=== PATIENT | male | born 1940 | race Caucasian/White ===

== ENCOUNTER 2021-09-26 15:27 | Inpatient (IN) | payer OTHER, BC ==
[2021-09-26] VITALS (19 sets, daily range): BP systolic 85–115; BP diastolic 44–61
[~2021-09-26] VITALS: Ht 175.3 cm; Wt 92.3 kg
[2021-09-26 16:34] LABS: ABSOLUTE NEUTROPHILS 14.1 thou/uL (1.4-8.2); BASOPHILS 0.1 % (0.0-2.0); HEMATOCRIT 41.5 % (42.0-52.0); HEMOGLOBIN 13.8 gm/dL (14.0-18.0); LYMPHOCYTES 1.2 % (24.0-44.0); MCH 30.6 pg (26.0-34.0); MCHC 33.2 g/dL (28.0-37.0); MCV 92.1 fL (80.0-100.0); MONOCYTES 4.3 % (1.0-8.0); PLATELET COUNT 140 thou/uL (150-400); POLYS 94.4 % (36.0-66.0); RBC 4.51 mil/uL (4.50-6.00); RDW 14.6 % (10.5-14.5); WBC 14.9 thou/uL (4.0-11.0)
[2021-09-26 16:51] LABS: CALCIUM 9.2 mg/dL (8.5-10.1); CREATININE 2.3 mg/dL (0.7-1.3); POTASSIUM 3.6 mmol/L (3.5-5.1)
[2021-09-26 16:54] LABS: URINE BILIRUBIN NEGATIVE (Negative); URINE BLOOD 2+ (Negative); URINE CLARITY CLOUDY; URINE COLOR YELLOW; URINE GLUCOSE-RANDOM* NEGATIVE (Negative); URINE KETONES TRACE (Negative); URINE NITRITE-REFLEX NEGATIVE (Negative); URINE PROTEIN (DIPSTICK) 1+ (Negative); URINE SPECIFIC GRAVITY 1.015 (1.005-1.035); URINE UROBILINOGEN 0.2 E.U./dl (0.2-1.0)
[2021-09-26 16:55] LABS: URINE LEUKOCYTES-REFLEX 3+ (Negative)
[2021-09-26 16:57] LABS: ALBUMIN 3.4 g/dL (3.4-5.0); TOTAL BILIRUBIN 1.1 mg/dL (0.2-1.0); TOTAL PROTEIN 6.8 g/dL (6.4-8.2)
[2021-09-26 17:07] LABS: CASTS None Seen /LPF (None Seen); CRYSTALS None Seen /LPF (None Seen); SQUAMOUS 0-3 Few /LPF (0-3); URINE RBC 3-10 Few /HPF (NONE SEEN)
[2021-09-26] MEDS ORDERED: DILTIAZEM 24HR300 M2 PO (17:41)
[2021-09-26] MEDS ORDERED: DUTASTERIDE0.5 MG PO (17:50)
[2021-09-26] MEDS ORDERED: TERAZOSIN HCL10 MG PO (17:59)
[2021-09-26] MEDS ORDERED: TRAZODONE HCL100 MG PO (17:59)
[2021-09-26] MEDS ORDERED: GLUCOSAMINE CH1 EAC4 PO (18:02)
[2021-09-26] MEDS ORDERED: ACID-PEP20 MG PO (18:02)
[2021-09-26] MEDS ORDERED: METFORMIN HCL500 M1 PO (18:02)
[2021-09-26] MEDS ORDERED: GABAPENTIN800 M1 PO (18:03)
[2021-09-26] MEDS ORDERED: POTASSIUM CHLO20 ME1 PO (18:03)
[2021-09-26] MEDS ORDERED: PRAVACHOL 20 MG20 M1 PO (18:03)
[2021-09-26] MEDS ORDERED: AMBIEN 5 MG TABL5 M1 PO (18:03)
[2021-09-26] MEDS ORDERED: HYDROCHLOROTHIA25 M1 PO (18:04)
[2021-09-26] MEDS ORDERED: SINGULAIR 10 MG10 M1 PO (18:04)
[2021-09-26] MEDS ORDERED: AVODART0.5 MG PO (18:04)
[2021-09-26] MEDS ORDERED: DIPHENHIST50 MG PO (18:05)
[2021-09-26] MEDS ORDERED: ALLEGRA ALLERG180 MG PO (18:05)
[2021-09-26 18:51] LABS: BE(vivo) -1.9 mmol/L (-2 to +3); HCO3 21.5 mmol/L (22.0-26.0); PCO2 32.6 mmHg (35.0-45.0); PO2 63.5 mmHg (80.0-100.0); pH 7.438 (7.360-7.450); sO2 93.2 % (92.0-98.0)
[2021-09-26 20:25] LABS: APTT 32.4 Seconds (24.5-32.8); INR 1.21; PROTIME 13.1 Seconds (10.5-12.1)
[2021-09-27] VITALS (74 sets, daily range): BP systolic 94–152; BP diastolic 57–95
--- NOTE | 2021-09-27 01:31 | NUR ---
Assumed care at 1944. Patient transferred to ICU from ER. Pt on sepsis protocol. A&0 x 4. PERRL. full ROM. NSR. room air, spo2 97%. denies SOA. last BM x 2 days. Temp 100.7 F. Blood sugar 109. Denies pain. asks appropriate questions. 1000ml NS infusing at 126ml/hr, Levophed infusoing at 5mcG/min. central line and grant catheter placement prior to admission to ICU. General & Laparoscopic consult contacted. Dr Zee called back at 2139 and informed this RN that he communicated with attending physician at ER prior to patient transfer. Adm assessment and education completed. Fall consent form signed by the patient. Medicare/Treatment consent form signed at ER. Patient's daughter, Dennise Miramontes called from [phone]. she was updated and educated on the patient's condition and his plan of care
[2021-09-27 04:47] LABS: HEMATOCRIT 36.5 % (42.0-52.0); HEMOGLOBIN 12.4 gm/dL (14.0-18.0); MCH 30.9 pg (26.0-34.0); MCHC 33.8 g/dL (28.0-37.0); MCV 91.3 fL (80.0-100.0); PLATELET COUNT 124 thou/uL (150-400); RDW 14.8 % (10.5-14.5); WBC 19.5 thou/uL (4.0-11.0)
[2021-09-27 05:50] LABS: ALBUMIN 2.6 g/dL (3.4-5.0); CALCIUM 8.1 mg/dL (8.5-10.1); CREATININE 1.5 mg/dL (0.7-1.3); POTASSIUM 3.3 mmol/L (3.5-5.1); TOTAL PROTEIN 5.8 g/dL (6.4-8.2)
[2021-09-27 06:02] LABS: METAMYELOCYTES 2 %
[2021-09-27 06:03] LABS: LARGE PLATELETS FEW; PLATELET ESTIMATE NORMAL
--- NOTE | 2021-09-27 11:44 | NUR ---
Per Dr. Lua, no need to adminster enema at this time. Will continue to monitor, since patient have loose stools now.
--- NOTE | 2021-09-27 14:26 | HC ---
[facility] [place] [address] CONSULTATION Name: GABRIELA MAYORGA Room #: 240-P ADM IN M.R.#: [id number] Admission: 09/26/21 Attend Phys: Samir Lua MD Discharge: Date of : 42 Report #: [id number] THIS REPORT FOR: cc: Alyssa Tapia MD, Michelle R. MD Geha, Daniel J. MD ~ DATE OF SERVICE: 09/26/2021 DATE OF SERVICE: 09/26/2021 REASON FOR CONSULTATION: I was asked to evaluate concerning septic shock. HISTORY OF PRESENT ILLNESS: The patient is a 80-year-old with underlying history of obstructive uropathy, who may also have a component of neurogenic bladder as he straight caths his bladder 3 times a day for the last several years, presents now with acute onset of fever, rigors, general malaise, arthralgias and myalgias. No nausea, vomiting or diarrhea. He has been anorexic. No cough or sputum production. His urine may have been a bit more cloudy. He was very weak and actually fell last night and again today. His daughter brought him into the Emergency Room where he was found to be febrile and hypotensive. He received over 2 liters of IV fluid now is on a saline drip along with Levophed drip. His oxygenation has been stable. He has had a right IJ catheter placed and now an indwelling Dumas catheter placed. He has had no travel. His COVID screening test has been negative. Prior to last evening, he felt well with good appetite. He has had no postprandial pain or nausea or vomiting. He does have underlying diabetes, COPD, hypertension, which has been stable. REVIEW OF SYSTEMS: A 14-point review of system was negative other than what has been described above. PAST MEDICAL HISTORY: BPH, hypertension, COPD, bronchitis, neurogenic bladder with outlet obstruction, left index finger soft tissue infection. ALLERGIES: GUAIFENESIN, PSEUDOEPHEDRINE. FAMILY HISTORY: Negative for tuberculosis. SOCIAL HISTORY: Past smoker and some alcohol use. PHYSICAL EXAMINATION: GENERAL: He was febrile, blood pressure 90s systolic. Heart rate in the 90s. He had a right IJ catheter in place. SKIN: Without rash or decubitus. No palpable adenopathy. He was alert and conversant. [address] [address] CONSULTATION Name: GABRIELA MAYORGA Room #: 240-P [facility] IN M.R.#: [id number] Admission: 09/26/21 Attend Phys: Samir Lua MD Discharge: Date of : 42 Report #: [id number] HEENT: Eyes without scleral icterus. Mouth without mucositis. NECK: Supple. CHEST: Clear. HEART: Regular, without appreciable murmur, gallop or rub. ABDOMEN: Soft and nontender. No hepatosplenomegaly or mass. No CVA tenderness. External genitalia without mass or lesion. RECTAL: Not performed. EXTREMITIES: Without clubbing, cyanosis or edema. NEUROLOGIC: Cranial nerves intact. Strength in the upper and lower extremities was symmetric and within normal limits. PSYCHIATRY: Mood without anxiety or depression. LABORATORY DATA: Reviewed. Microbiology reviewed. CT scan of the abdomen and pelvis reviewed. Chest x-ray reviewed. IMPRESSION: 1. A 80-year-old with septic shock. I suspect urinary tract source most likely. CT imaging does show some perinephric fluid in the right kidney. He does have nonobstructing nephrolithiasis. This is in the setting of BPH and chronic straight catheterization program. Also has evidence of gallbladder wall thickening. He had a fecal impaction. He has left adrenal hyperplasia. 2. Acute kidney injury and mild transaminase elevation. 3. Underlying hypertension and chronic obstructive pulmonary disease. RECOMMENDATION: We will continue with broad antibiotic coverage while awaiting blood and urine cultures. Follow serial laboratory studies. The patient will be in the ICU for fluid management and blood pressure control. The patient is currently receiving sepsis protocol. I have discussed with the patient's daughter at the bedside as well as nursing staff regarding overall treatment plan. <ELECTRONICALLY SIGNED> By: Ancelmo Osborne MD 09/27/21 1426 1826 19 Ancemlo Osborne MD /nt
--- NOTE | 2021-09-27 18:00 | NUR ---
Pt report given to CCU Nurse for Sarah Jaffe. Pt up in w/c with assist. Still weak. Taken to room 201 acc. by RN placed in the bed and belongings given to him. Phone and shoes and clothes in a bag. Pt placed on the ccu monitor. Pt to call his daugther.
[2021-09-28 02:21] LABS: HEMATOCRIT 37.7 % (42.0-52.0); HEMOGLOBIN 12.4 gm/dL (14.0-18.0); MCH 30.3 pg (26.0-34.0); MCHC 32.8 g/dL (28.0-37.0); MCV 92.3 fL (80.0-100.0); RBC 4.09 mil/uL (4.50-6.00); RDW 14.7 % (10.5-14.5); WBC 14.9 thou/uL (4.0-11.0)
[2021-09-28 02:31] LABS: CALCIUM 8.3 mg/dL (8.5-10.1); CREATININE 0.9 mg/dL (0.7-1.3); MAGNESIUM 1.9 mg/dL (1.8-2.4); POTASSIUM 3.5 mmol/L (3.5-5.1)
[2021-09-28 05:13] VITALS: BP 123/75
--- NOTE | 2021-09-28 06:17 | NUR ---
ASSUMED CARE OF PT AT 1900. PT ASSESSED TO BE AOX4 80M HERE PRESENTING WITH SEPSIS. PT RESTED QUIETLY IN ROOM THROUGHOUT THE NIGHT WITH NO COMPLAINTS, VSS. PT MAINTAINED O2 ON RA, PULSES GOOD, SUGARS GOOD, ON FLUIDS AND ANTIBIOTICS FOR SEPSIS, AND ABLE TO GET UP TO THE BR TO HAVE BM. EARLY IN EVENING PT LACTIC OF 4.4 REDUCED TO 0.9 BY AM. NO FURTHER COMPLAINTS, WILL TALK TO CARE TEAM ABOUT RESTARTING SLEEPING PILLS THIS EVENING.
[2021-09-28 07:08] VITALS: BP 135/80
[2021-09-28 11:10] VITALS: BP 142/85
--- NOTE | 2021-09-28 12:43 | NUR ---
Case opened to follow for dc planning needs. Chart reviewed and automobile service writer visited with the pt and his dtr Dennise at bedside. Cm role introduced. Pt is A&ox4 and indicates that he lives indep in his own home. He drives and remains active with no dme currently. He has three adult children that all live locally and are available if needed. His pcp is Dr. Alyssa Tapia. He denies any needs or concerns at this time and is up with supervision. No cm interventions indicated at this time but will remain available should needs arise. Pt is being treated for sepsis.
[2021-09-28 14:54] VITALS: BP 148/96
--- NOTE | 2021-09-28 18:37 | NUR ---
PATIENT ASSESMENT COMPLETED. PATIENT HAD MULTIPLE FAMILY MEMBERS AT BEDSIDE. RECIEVED IV ANTIBIOTICS. NO COMPLAINTS AT THE MOMENTS, PATIENT COMFORTABLE AND ATE ALL MEALS.
[2021-09-28 22:00] VITALS: BP 132/85
[2021-09-29 04:15] VITALS: BP 123/66
[2021-09-29 04:39] LABS: HEMATOCRIT 33.9 % (42.0-52.0); HEMOGLOBIN 11.6 gm/dL (14.0-18.0); MCH 31.3 pg (26.0-34.0); MCHC 34.3 g/dL (28.0-37.0); MCV 91.3 fL (80.0-100.0); RBC 3.72 mil/uL (4.50-6.00); RDW 14.4 % (10.5-14.5); WBC 10.6 thou/uL (4.0-11.0)
[2021-09-29 05:03] LABS: CALCIUM 7.3 mg/dL (8.5-10.1); CREATININE 0.7 mg/dL (0.7-1.3); MAGNESIUM 1.5 mg/dL (1.8-2.4)
[2021-09-29 05:12] LABS: POTASSIUM 2.8 mmol/L (3.5-5.1)
--- NOTE | 2021-09-29 07:10 | EKG ---
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: NANNETTE : 1940 Requested By: Abelardo Luis Order Number: [id number] MD: Leonides Ochoa Measurements Intervals Tarkio Rate: 96 P: 31 IA: 144 QRS: 15 QRSD: 93 T: 46 QT: 347 QTc: 439 Interpretive Statements Sinus rhythm Compared to ECG 07/07/2011 15:30:15 Sinus arrhythmia no longer present Electronically Signed On 09-29-2021 7:10:51 GENERAL UTILITY WORKER by Leonides Ochoa [email or web address] <ELECTRONICALLY SIGNED> By: Leonides Ochoa MD, [facility] 09/29/21 0710 1553 52 Leonides Ochoa MD, FACC /EPI
[2021-09-29 07:48] VITALS: BP 146/82
--- NOTE | 2021-09-29 07:52 | NUR ---
pt resting comfortably thru the noc, grant with large amount yellow urine draing thru the noc, no c/o pain, vss, cv called to physican notified and orders received, will con't to monitor per ppoc.
[2021-09-29 11:00] VITALS: BP 159/81
[2021-09-29 14:46] LABS: CALCIUM 8.5 mg/dL (8.5-10.1); CREATININE 0.8 mg/dL (0.7-1.3); POTASSIUM 3.7 mmol/L (3.5-5.1)
[2021-09-29 16:04] VITALS: BP 163/91
[2021-09-29 19:14] VITALS: BP 150/92
[2021-09-30 03:57] VITALS: BP 152/96
[2021-09-30 06:11] LABS: HEMATOCRIT 37.7 % (42.0-52.0); HEMOGLOBIN 12.9 gm/dL (14.0-18.0); MCHC 34.1 g/dL (28.0-37.0); MCV 90.9 fL (80.0-100.0); RBC 4.15 mil/uL (4.50-6.00); RDW 14.5 % (10.5-14.5); WBC 8.1 thou/uL (4.0-11.0)
[2021-09-30 06:26] LABS: CALCIUM 8.3 mg/dL (8.5-10.1); CREATININE 0.7 mg/dL (0.7-1.3); MAGNESIUM 1.9 mg/dL (1.8-2.4); POTASSIUM 3.3 mmol/L (3.5-5.1)
[2021-09-30 07:16] VITALS: BP 150/98
--- NOTE | 2021-09-30 07:40 | NUR ---
ASSUMED PT CARE AT 1900, ALERT AND ORIENTEDX4, SR WITH PVCS, ASSESSMENTS CHARTED, MEDS GIVEN PER DEC, CRITICAL BLOOD CULTURES COMMUNICATED TO AUTO ENGINE MECHANIC, NO NEW ORDERS RECEIVED, PT REMAINS ON IV ABX, AFEBRILE, VSS, DENIES CONCERNS THROUGH THE SHIFT, PROGRESSING TOWARDS POC, REPORT GIVEN TO DAY RN
--- NOTE | 2021-09-30 08:49 | NUR ---
Assumed care of pt this AM. Pt is A&O x4, on RA. SR w/ PVCs on the monitor. Today is pts birthday. Pt denies any current pain. Up to chair this AM. Dumas in place & patent, draining yellow urine. Will continue to assess pt needs.
[2021-09-30 11:33] VITALS: BP 141/91
[2021-09-30] MEDS ORDERED: CEFDINIR300 MG PO (12:19)
[2021-09-30 12:29] VITALS: BP 141/91
[2021-09-30 12:35] VITALS: BP 141/91
[2021-09-30 14:35] VITALS: BP 141/91
--- NOTE | 2021-09-30 16:51 | NUR ---
Patient to dc home with HH today. patient has family at bedside. Discussed home health and gave list of home health agencies as options. Patient with no preference. Referral to [facility]. Liason with [facility] met with patient. Liason obtained orders no further needs
== END 2021-09-30 15:48 | disposition home health service (06) | DRG 871 ==
LOC: ER 15:27 → EROBS 18:39 → 2N 18:39 → ICU 19:21 → 2N 09-27 18:38
PROVIDERS: Nurse Practitioner; Specialist; ADMIT Internal Medicine; ATTEND Internal Medicine
PROC: 02HV33Z Insertion of Infusion Device into Superior Vena Cava, Percutaneous Approach (ICD-10-PCS; principal; 2021-09-26)
DX: A41.50 Gram-negative sepsis, unspecified (principal); R65.21 Severe sepsis with septic shock; N13.8 Other obstructive and reflux uropathy; N12 Tubulo-interstitial nephritis, not specified as acute or chronic; N17.9 Acute kidney failure, unspecified; Z20.822 Contact with and (suspected) exposure to COVID-19; I10 Essential (primary) hypertension; E78.5 Hyperlipidemia, unspecified; E11.9 Type 2 diabetes mellitus without complications; J44.9 Chronic obstructive pulmonary disease, unspecified; K56.41 Fecal impaction; R74.01 Elevation of levels of liver transaminase levels; N40.1 Benign prostatic hyperplasia with lower urinary tract symptoms; E27.8 Other specified disorders of adrenal gland; N20.0 Calculus of kidney; N31.9 Neuromuscular dysfunction of bladder, unspecified; K81.9 Cholecystitis, unspecified; Z88.8 Allergy status to other drugs, medicaments and biological substances; Z87.891 Personal history of nicotine dependence
CPT/HCPCS: 10078; 10081; 10797; 65040